=== PATIENT | male | born 1950 | race Caucasian/White ===

== ENCOUNTER 2018-03-11 13:57 | Emergency (ER) | payer MEDICARE, BC ==
[~2018-03-11] VITALS: Ht 182.9 cm; Wt 84.1 kg
[2018-03-11 14:04] VITALS: BP 153/71
[2018-03-11] MEDS ORDERED: HYDROcodone/acetaminophen 10/325mg tab PO ONE (14:10)
[2018-03-11] MEDS ORDERED: ondansetron 4mg rapidly disintigrating tab PO ONE (14:10)
[2018-03-11] MEDS ORDERED: NAPR-56 PO (14:43)
[2018-03-11] MEDS ORDERED: HYDR-569 PO (14:43)
[2018-03-11] MEDS ORDERED: ketorolac trometh inj. 60 MG/2 ML VIAL IM ONE (14:50)
== END 2018-03-11 15:20 | disposition home or self-care (01) ==
LOC: ER 13:58
DX: S20.211A Contusion of right front wall of thorax, initial encounter (principal); Z87.891 Personal history of nicotine dependence; W22.8XXA Striking against or struck by other objects, initial encounter; Y93.89 Activity, other specified; Y92.89 Other specified places as the place of occurrence of the external cause; Y99.8 Other external cause status
CPT/HCPCS: 71046; 93005; 96372; 99284; J1885

== ENCOUNTER 2020-09-20 16:53 | Emergency (ER) | payer MEDICARE, BC ==
[~2020-09-20] VITALS: Ht 185.4 cm; Wt 89.5 kg
[~2020-09-20 16:53] MED LIST: HYDR-4383 PO
[2020-09-20] MEDS ORDERED: normal saline 1000ml 1,000 ML IV ONE ×2 (17:40→18:20)
[2020-09-20 17:46] LABS: BASOPHILS # (AUTO) 0.1 X10'3 (0-0.2); BASOPHILS % (AUTO) 0.7 % (0-1); EOSINOPHILS # (AUTO) 0.2 X10'3 (0-0.9); EOSINOPHILS % (AUTO) 2.5 % (0-6); HEMATOCRIT 41.9 % (42.0-52.0); HEMOGLOBIN 13.9 g/dl (14.0-17.9); LYMPHOCYTES # (AUTO) 1.6 X10'3 (1.1-4.8); LYMPHOCYTES % (AUTO) 22.8 % (21-51); MEAN CORPUSCULAR HEMOGLOBIN 30.3 PG (27.0-31.0); MEAN CORPUSCULAR HGB CONC 33.2 g/dL (33.0-36.5); MEAN CORPUSCULAR VOLUME 91.2 FL (78-98); MEAN PLATELET VOLUME 7.5 FL (7.4-10.4); MONOCYTES # (AUTO) 0.4 X10'3 (0-0.9); MONOCYTES % (AUTO) 5.4 % (2-12); NEUTROPHILS # (AUTO) 4.7 X10'3 (1.8-7.7); NEUTROPHILS % (AUTO) 68.6 % (42-75); PLATELET COUNT 211 X10'3 (140-440); RED BLOOD COUNT 4.59 X10'6 (4.70-6.10); RED CELL DISTRIBUTION WIDTH 15.2 % (11.5-14.5); WHITE BLOOD COUNT 6.9 X10'3 (4.5-11.0)
[2020-09-20 18:07] LABS: ALANINE AMINOTRANSFERASE 42 U/L (12-78); ALBUMIN 3.7 G/DL (3.4-5.0); ALKALINE PHOSPHATASE 101 IU/L (46-116); ANION GAP 12 (8-16); ASPARTATE AMINO TRANSFERASE 22 U/L (10-37); BILIRUBIN,TOTAL 0.5 MG/DL (0.1-1.0); BLOOD UREA NITROGEN 33 MG/DL (7-18); BUN/CREATININE RATIO 17.9 (5.4-32.0); CALCIUM 9.4 MG/DL (8.5-10.1); CHLORIDE 94 MMOL/L (99-107); CREATININE 1.84 MG/DL (0.60-1.10); POTASSIUM 5.1 MMOL/L (3.5-5.1); SODIUM 129 MMOL/L (135-145); TOTAL CARBON DIOXIDE 23.5 MMOL/L (24-32); TOTAL PROTEIN 7.5 G/DL (6.4-8.2); eGFR 37 ML/MIN
[2020-09-20 18:11] LABS: GLUCOSE 650 MG/DL (70-104)
[2020-09-20] MEDS ORDERED: insulin regular, human 10 units/0.1 ml syringe IV ONE (18:20)
[2020-09-20 18:28] LABS: CLARITY,URINE CLEAR (Clear); COLOR,URINE YELLOW (Yellow); GLUCOSE, URINE >=1000 mg/dl (Neg); KETONES,URINE NEGATIVE (Neg); LEUKOCYTE ESTERASE ,URINE NEGATIVE (Neg); NITRITES, URINE NEGATIVE (Neg); OCCULT BLOOD,URINE TRACE-INTACT (Neg); PROTEIN,URINE NEGATIVE (Neg); UROBILINOGEN,URINE 0.2 E.U/dL (0.2-1.0)
[2020-09-20 18:28] LABS: MAGNESIUM 2.2 MG/DL (1.5-2.4); TROPONIN I < 0.04 NG/ML (0.0-0.05)
[2020-09-20 18:29] LABS: UA COLLECTION TYPE CLN CATCH MIDSTREAM
[2020-09-20 18:53] LABS: BACTERIA,URINE FEW /HPF (Neg); RBC,URINE 0-2 /HPF (0-2); WBC,URINE 0-4 /HPF (0-4)
[2020-09-20 18:54] LABS: SQUAMOUS EPITHELIAL CELL,UR FEW /LPF (FEW)
[2020-09-20] MEDS ORDERED: insulin regular, human U-100 3ml vial - multi-dose IV ONE (18:55)
[2020-09-20] MEDS ORDERED: potassium Cl 40MEQ/1/2NS 520ml 520 ML IV PRN ×2 (20:15)
[2020-09-20] MEDS ORDERED: mag hydrox/Alum hydrox/simeth 30ml oral suspension PO PRN (20:15)
[2020-09-20] MEDS ORDERED: potassium Cl 20 mEq SR tablet PO PRN ×2 (20:15)
[2020-09-20] MEDS ORDERED: magnesium hydroxide 30ml (MOM) UD suspension PO PRN (20:15)
[2020-09-20] MEDS ORDERED: acetaminophen 325mg tablet PO PRN (20:15)
[2020-09-20] MEDS ORDERED: ondansetron/PF 4mg/2ml inj IV PRN (20:15)
[2020-09-20] MEDS ORDERED: dextrose ORAL solution 15 GM/59 ML bottle PO PRN ×2 (20:20)
[2020-09-20] MEDS ORDERED: MESSAGE TO PHARMACY PO ONE (20:20)
[2020-09-20] MEDS ORDERED: glucagon, human recombinant 1mg kit SUBCUT PRN (20:20)
[2020-09-20] MEDS ORDERED: dextrose 50%-water 50ml dispensing syringe IV PRN ×2 (20:20)
[2020-09-20] MEDS ORDERED: insulin Lispro (HumaLOG) vial - multi-dose SQ SCH (20:20)
[2020-09-20] MEDS ORDERED: NO HOME MEDS (20:25)
[2020-09-20 20:37] LABS: HEMOGLOBIN A1C 10.8 % (4.5-6.2)
[2020-09-20] MEDS: normal saline 1000ml 1,000 ML IV SCH (20:56)
[2020-09-20] MEDS: gabapentin 100mg capsule PO SCH (20:56)
[2020-09-20] MEDS ORDERED: insulin glargine (Lantus) pen - multi-dose SQ SCH (21:00)
[2020-09-21 02:53] LABS: BASOPHILS % (AUTO) 0.4 % (0-1); EOSINOPHILS # (AUTO) 0.3 X10'3 (0-0.9); EOSINOPHILS % (AUTO) 3.9 % (0-6); HEMATOCRIT 37.3 % (42.0-52.0); HEMOGLOBIN 12.4 g/dl (14.0-17.9); LYMPHOCYTES # (AUTO) 2.6 X10'3 (1.1-4.8); LYMPHOCYTES % (AUTO) 36.3 % (21-51); MEAN CORPUSCULAR HEMOGLOBIN 29.7 PG (27.0-31.0); MEAN CORPUSCULAR HGB CONC 33.1 g/dL (33.0-36.5); MEAN CORPUSCULAR VOLUME 89.7 FL (78-98); MEAN PLATELET VOLUME 7.2 FL (7.4-10.4); MONOCYTES # (AUTO) 0.4 X10'3 (0-0.9); MONOCYTES % (AUTO) 5.7 % (2-12); NEUTROPHILS # (AUTO) 3.8 X10'3 (1.8-7.7); NEUTROPHILS % (AUTO) 53.7 % (42-75); PLATELET COUNT 184 X10'3 (140-440); RED BLOOD COUNT 4.16 X10'6 (4.70-6.10); RED CELL DISTRIBUTION WIDTH 14.8 % (11.5-14.5)
[2020-09-21 03:05] LABS: ALANINE AMINOTRANSFERASE 35 U/L (12-78); ALBUMIN 3.2 G/DL (3.4-5.0); ALKALINE PHOSPHATASE 79 IU/L (46-116); ANION GAP 10 (8-16); ASPARTATE AMINO TRANSFERASE 20 U/L (10-37); BILIRUBIN,TOTAL 0.4 MG/DL (0.1-1.0); BLOOD UREA NITROGEN 27 MG/DL (7-18); BUN/CREATININE RATIO 23.1 (5.4-32.0); CALCIUM 8.5 MG/DL (8.5-10.1); CHLORIDE 101 MMOL/L (99-107); CREATININE 1.17 MG/DL (0.60-1.10); GLUCOSE 207 MG/DL (70-104); POTASSIUM 3.8 MMOL/L (3.5-5.1); SODIUM 136 MMOL/L (135-145); TOTAL CARBON DIOXIDE 24.6 MMOL/L (24-32); TOTAL PROTEIN 6.3 G/DL (6.4-8.2); eGFR 62 ML/MIN
--- NOTE | 2020-09-21 05:58 | NUR ---
Pt requested a new diaper due to urine incontinence.
[2020-09-21] MEDS ORDERED: K and/or MAG REPLACEMENT MC SCH ×2 (08:00→20:00)
[2020-09-21] MEDS ORDERED: heparin, porcine 5000 units/ml vial SQ SCH (08:00)
--- NOTE | 2020-09-21 08:35 | NUR ---
accu checks done and breakfast tray given to pt.
[2020-09-21] MEDS: normal saline 1000ml 1,000 ML IV SCH (08:40)
[2020-09-21] MEDS: gabapentin 100mg capsule PO SCH (08:40)
--- NOTE | 2020-09-21 08:45 | NUR ---
PT'S ARRIVES AT BEDSIDE. BROUGHT BATTERIES FOR HEARING AIDS.
--- NOTE | 2020-09-21 09:41 | NUR ---
PT GIVEN 6 UNITS HUMALOG INSULIN PER PROTOCOL
[2020-09-21] MEDS ORDERED: magnesium Cl slow-release 64mg tablet PO PRN (10:05)
[2020-09-21] MEDS ORDERED: magnesium 4gm in 100ml NS 100 ML IV PRN (10:05)
[2020-09-21] MEDS ORDERED: AMA1T PO (12:30)
[2020-09-21] MEDS ORDERED: ASPI-611 PO (12:30)
[2020-09-21] MEDS ORDERED: METF-950 PO (12:30)
[2020-09-21] MEDS ORDERED: LISI10TA27 PO (12:30)
[2020-09-21] MEDS ORDERED: SAXA5TAB PO (12:30)
[2020-09-21 13:56] VITALS: BP 113/74
== END 2020-09-21 13:56 | disposition home or self-care (01) ==
LOC: ER 16:55 → UNDOADMIN 20:14 → ED HOLD 20:14 → UNDODISIN 09-21 13:56
DX: E11.65 Type 2 diabetes mellitus with hyperglycemia (principal); R32 Unspecified urinary incontinence; G62.9 Polyneuropathy, unspecified; E86.0 Dehydration; Z79.82 Long term (current) use of aspirin; Z79.899 Other long term (current) drug therapy
CPT/HCPCS: 36415; 71045; 80053; 81001; 82948; 83036; 83735; 84484; 85025; 87081; 96361; 96372; 96374; 99285; J1644; J1815; J7030; G0378

== ENCOUNTER 2024-07-02 15:01 | Inpatient (IN) | payer MEDICARE ==
[~2024-07-02] VITALS: Ht 182.9 cm; Wt 87.5 kg
[~2024-07-02 15:01] MED LIST changes: -HYDR-4383 PO; +LISI10TA27 PO; +SAXA5TAB PO
[2024-07-02 15:58] LABS: BASOPHILS # (AUTO) 0.1 X10'3 (0-0.2); BASOPHILS % (AUTO) 0.8 % (0-1); EOSINOPHILS # (AUTO) 0.9 X10'3 (0-0.9); EOSINOPHILS % (AUTO) 10.8 % (0-6); HEMATOCRIT 43.5 % (42.0-52.0); HEMOGLOBIN 14.4 g/dl (14.0-17.9); LYMPHOCYTES # (AUTO) 2.3 X10'3 (1.1-4.8); LYMPHOCYTES % (AUTO) 26.7 % (21-51); MEAN CORPUSCULAR HEMOGLOBIN 29.3 PG (27.0-31.0); MEAN CORPUSCULAR VOLUME 88.8 FL (78-98); MEAN PLATELET VOLUME 7.5 FL (7.4-10.4); MONOCYTES # (AUTO) 0.5 X10'3 (0-0.9); MONOCYTES % (AUTO) 5.6 % (2-12); NEUTROPHILS # (AUTO) 4.9 X10'3 (1.8-7.7); NEUTROPHILS % (AUTO) 56.1 % (42-75); PLATELET COUNT 234 X10'3 (140-440); RED CELL DISTRIBUTION WIDTH 15.4 % (11.5-14.5); WHITE BLOOD COUNT 8.7 X10'3 (4.5-11.0)
[2024-07-02 16:11] LABS: ALBUMIN 4.3 G/DL (3.4-5.0); ANION GAP 9 (8-16); BLOOD UREA NITROGEN 36 MG/DL (7-18); BUN/CREATININE RATIO 25.5 (10.0-20.0); CALCIUM 9.8 MG/DL (8.5-10.1); CHLORIDE 105 MMOL/L (99-107); CREATININE 1.41 MG/DL (0.60-1.10); GLUCOSE 120 MG/DL (70-104); SODIUM 139 MMOL/L (135-145); TOTAL CARBON DIOXIDE 25.3 MMOL/L (24-32); eCRCL 51 ML/MIN; eGFR 49 ML/MIN
[2024-07-02 16:22] LABS: APTT 27 SECONDS (22-32); PROTHROMBIN TIME 10.7 SECONDS (9.0-12.0)
[2024-07-02] MEDS: clopidogrel 300mg tablet PO ONE (21:31)
[2024-07-02] MEDS ORDERED: hydrALAZINE 20mg/ml inj. IV PRN (23:20)
[2024-07-02] MEDS ORDERED: acetaminophen 325mg tablet PO PRN (23:20)
[2024-07-02] MEDS ORDERED: magnesium hydroxide 30ml (MOM) UD suspension PO PRN (23:20)
[2024-07-02] MEDS ORDERED: bisacodyl 10mg suppository rectal RC PRN (23:20)
[2024-07-02] MEDS: PERFLUTREN PROTEIN-A MICROSPHR (Optison) 0.22 MG/ML 3ML VIAL IV ONE (23:52)
[2024-07-03 00:11] LABS: HEMOGLOBIN A1C 7.5 % (4.5-6.2)
[2024-07-03] MEDS ORDERED: UNABLE TO OBTAIN (00:15)
[2024-07-03] MEDS ORDERED: METF-1203 PO (00:24)
[2024-07-03] MEDS ORDERED: GABA-1405 PO (00:25)
[2024-07-03] MEDS ORDERED: GLIM2TAB6 PO (00:26)
[2024-07-03] MEDS ORDERED: ROSU10TA72 PO (00:27)
[2024-07-03 00:30] VITALS: BP 129/78; PULSE 77; RESP 14; TEMP 97.9; O2SAT 97
[2024-07-03] MEDS ORDERED: glucagon, human recombinant 1mg kit SUBCUT PRN (00:35)
[2024-07-03] MEDS ORDERED: dextrose 50%-water 50ml dispensing syringe IV PRN ×2 (00:35)
[2024-07-03] MEDS ORDERED: DEXTROSE 15 GM of carb/4 tabs (each vial/BOTTLE has 4 tablets) PO PRN ×2 (00:35)
[2024-07-03] MEDS: acetaminophen 325mg tablet PO PRN (00:48)
[2024-07-03] MEDS: normal saline 1000ml 1,000 ML IV SCH (02:08)
[2024-07-03 06:00] VITALS: BP 124/73; PULSE 75; RESP 16; TEMP 97.2; O2SAT 92
[2024-07-03 06:41] LABS: BASOPHILS # (AUTO) 0.1 X10'3 (0-0.2); BASOPHILS % (AUTO) 0.7 % (0-1); EOSINOPHILS # (AUTO) 1.1 X10'3 (0-0.9); EOSINOPHILS % (AUTO) 11.2 % (0-6); HEMATOCRIT 40.9 % (42.0-52.0); HEMOGLOBIN 13.7 g/dl (14.0-17.9); LYMPHOCYTES # (AUTO) 2.7 X10'3 (1.1-4.8); LYMPHOCYTES % (AUTO) 28.4 % (21-51); MEAN CORPUSCULAR HEMOGLOBIN 29.7 PG (27.0-31.0); MEAN CORPUSCULAR HGB CONC 33.5 g/dL (33.0-36.5); MEAN CORPUSCULAR VOLUME 88.5 FL (78-98); MEAN PLATELET VOLUME 7.4 FL (7.4-10.4); MONOCYTES # (AUTO) 0.7 X10'3 (0-0.9); NEUTROPHILS % (AUTO) 52.7 % (42-75); PLATELET COUNT 200 X10'3 (140-440); RED BLOOD COUNT 4.62 X10'6 (4.70-6.10); RED CELL DISTRIBUTION WIDTH 15.4 % (11.5-14.5); WHITE BLOOD COUNT 9.5 X10'3 (4.5-11.0)
[2024-07-03] MEDS: INSULIN LISPRO 100 UNIT/ML INSULN.PEN MULTI-DOSE SQ SCH (07:00)
[2024-07-03 07:30] LABS: ALANINE AMINOTRANSFERASE 23 U/L (12-78); ALBUMIN 3.9 G/DL (3.4-5.0); ALBUMIN/GLOBULIN RATIO 1.1 (1.1-1.5); ALKALINE PHOSPHATASE 66 IU/L (46-116); ANION GAP 12 (8-16); ASPARTATE AMINO TRANSFERASE 20 U/L (10-37); BILIRUBIN,TOTAL 0.5 MG/DL (0.1-1.0); BLOOD UREA NITROGEN 29 MG/DL (7-18); BUN/CREATININE RATIO 22.7 (10.0-20.0); CALCIUM 9.3 MG/DL (8.5-10.1); CHLORIDE 107 MMOL/L (99-107); CHOL/HDL RATIO 2.8 (0.00-4.99); CHOLESTEROL 108 MG/DL (0-200); CREATININE 1.28 MG/DL (0.60-1.10); GLUCOSE 101 MG/DL (70-104); HDL CHOLESTEROL 39 MG/DL (35-60); LDL CHOLESTEROL 42 MG/DL (50-100); POTASSIUM 4.1 MMOL/L (3.5-5.1); SODIUM 139 MMOL/L (135-145); THYROID STIMULATING HORMONE 2.95 ulU/ml (0.34-4.50); TOTAL CARBON DIOXIDE 19.8 MMOL/L (24-32); TOTAL PROTEIN 7.4 G/DL (6.4-8.2); TRIGLYCERIDES 252 MG/DL (20-135); eCRCL 56 ML/MIN; eGFR 55 ML/MIN
[2024-07-03] MEDS: docusate sod 100mg capsule PO SCH (08:00)
[2024-07-03] MEDS: pantoprazole 40mg Tablet.DR PO SCH (09:39)
[2024-07-03] MEDS: aspirin 81mg, enteric-coated 1 TAB TABLET.DR PO SCH (09:40)
[2024-07-03] MEDS: clopidogrel 75mg tablet PO SCH (09:41)
[2024-07-03] MEDS: atorvastatin 10mg tablet PO SCH (09:42)
[2024-07-03] MEDS: heparin, porcine 5000 units/ml vial SQ SCH (09:43)
[2024-07-03 10:00] VITALS: BP 148/78; PULSE 80; RESP 17; TEMP 97.8; O2SAT 98
[2024-07-03] MEDS ORDERED: iohexol 350MG/ML 100ml bottle IV ONE (11:21)
[2024-07-03] MEDS: ondansetron/PF 4mg/2ml inj IV PRN (12:52)
[2024-07-03] MEDS: gabapentin 300mg capsule PO SCH (12:53)
[2024-07-03 15:00] VITALS: BP 112/58; PULSE 82; RESP 16; TEMP 97.8; O2SAT 97
[2024-07-03] MEDS ORDERED: ondansetron 4mg rapidly disintigrating tab PO PRN (15:55)
[2024-07-03] MEDS ORDERED: HYDROcodone/acetaminophen 10/325mg tab PO PRN (15:55)
[2024-07-03] MEDS ORDERED: ondansetron/PF 4mg/2ml inj IV PRN (15:55)
[2024-07-03] MEDS ORDERED: acetaminophen 325mg tablet PO PRN ×2 (15:55)
[2024-07-03] MEDS ORDERED: morphine 2 MG/ML inj. syringe IV PRN ×2 (15:55)
[2024-07-03] MEDS: HYDROcodone/acetaminophen 5mg/325mg tablet PO PRN (17:29)
[2024-07-03 18:00] VITALS: BP 143/81; PULSE 81; RESP 18; TEMP 98.1; O2SAT 97
[2024-07-03] MEDS ORDERED: gabapentin 300mg capsule PO SCH (20:00)
[2024-07-03] MEDS: insulin glargine (Lantus) pen - multi-dose SQ SCH (21:18)
[2024-07-03 22:00] VITALS: BP 140/77; PULSE 77; RESP 16; TEMP 98; O2SAT 96
[2024-07-04 03:38] VITALS: BP 113/67; PULSE 74; RESP 16; TEMP 98.7; O2SAT 97
[2024-07-04 06:00] VITALS: BP 107/53; PULSE 77; RESP 16; TEMP 98.1; O2SAT 91
[2024-07-04] MEDS ORDERED: CLOP75TA34 PO (07:30)
[2024-07-04] MEDS ORDERED: ASPI-1071 PO (07:30)
[2024-07-04 07:51] LABS: BASOPHILS # (AUTO) 0.1 X10'3 (0-0.2); BASOPHILS % (AUTO) 0.6 % (0-1); EOSINOPHILS # (AUTO) 0.8 X10'3 (0-0.9); HEMOGLOBIN 12.4 g/dl (14.0-17.9); LYMPHOCYTES # (AUTO) 2.1 X10'3 (1.1-4.8); LYMPHOCYTES % (AUTO) 25.8 % (21-51); MEAN CORPUSCULAR HEMOGLOBIN 29.4 PG (27.0-31.0); MEAN CORPUSCULAR HGB CONC 33.4 g/dL (33.0-36.5); MEAN PLATELET VOLUME 7.6 FL (7.4-10.4); MONOCYTES # (AUTO) 0.6 X10'3 (0-0.9); MONOCYTES % (AUTO) 7.9 % (2-12); NEUTROPHILS # (AUTO) 4.5 X10'3 (1.8-7.7); NEUTROPHILS % (AUTO) 55.7 % (42-75); PLATELET COUNT 185 X10'3 (140-440); RED CELL DISTRIBUTION WIDTH 15.3 % (11.5-14.5); WHITE BLOOD COUNT 8.2 X10'3 (4.5-11.0)
[2024-07-04 08:23] LABS: ALANINE AMINOTRANSFERASE 20 U/L (12-78); ALBUMIN 3.4 G/DL (3.4-5.0); ALBUMIN/GLOBULIN RATIO 1.1 (1.1-1.5); ALKALINE PHOSPHATASE 53 IU/L (46-116); ANION GAP 9 (8-16); ASPARTATE AMINO TRANSFERASE 18 U/L (10-37); BILIRUBIN,TOTAL 0.5 MG/DL (0.1-1.0); BLOOD UREA NITROGEN 27 MG/DL (7-18); BUN/CREATININE RATIO 19.3 (10.0-20.0); CHLORIDE 107 MMOL/L (99-107); GLUCOSE 151 MG/DL (70-104); POTASSIUM 4.2 MMOL/L (3.5-5.1); SODIUM 140 MMOL/L (135-145); TOTAL CARBON DIOXIDE 23.8 MMOL/L (24-32); TOTAL PROTEIN 6.6 G/DL (6.4-8.2); eCRCL 52 ML/MIN; eGFR 50 ML/MIN
[2024-07-04 08:45] VITALS: RESP 16; O2SAT 91
[2024-07-04 10:00] VITALS: BP 127/70; PULSE 74; TEMP 98.7; O2SAT 97
[2024-07-04] MEDS ORDERED: ATOR-2 PO (18:00)
[2024-07-04] MEDS ORDERED: ROSU10TA72 PO (18:01)
== END 2024-07-04 11:45 | disposition home health service (06) | DRG 65 ==
LOC: ER 15:02 → ED HOLD 20:41 → ORTHO 4S 07-03 00:35
PROVIDERS: ADMIT Surgery Surgical Critical Care; ATTEND Nurse Practitioner Family
PROC: B3251ZZ Computerized Tomography (CT Scan) of Bilateral Common Carotid Arteries using Low Osmolar Contrast (ICD-10-PCS; principal; 2024-07-03)
PROC: B32G1ZZ Computerized Tomography (CT Scan) of Bilateral Vertebral Arteries using Low Osmolar Contrast (ICD-10-PCS; 2024-07-03)
PROC: B32R1ZZ Computerized Tomography (CT Scan) of Intracranial Arteries using Low Osmolar Contrast (ICD-10-PCS; 2024-07-03)
PROC: B3281ZZ Computerized Tomography (CT Scan) of Bilateral Internal Carotid Arteries using Low Osmolar Contrast (ICD-10-PCS; 2024-07-03)
DX: I63.9 Cerebral infarction, unspecified (principal); N17.9 Acute kidney failure, unspecified; I65.23 Occlusion and stenosis of bilateral carotid arteries; I12.9 Hypertensive chronic kidney disease with stage 1 through stage 4 chronic kidney disease, or unspecified chronic kidney disease; N18.9 Chronic kidney disease, unspecified; D32.0 Benign neoplasm of cerebral meninges; E11.22 Type 2 diabetes mellitus with diabetic chronic kidney disease; E78.5 Hyperlipidemia, unspecified; G43.909 Migraine, unspecified, not intractable, without status migrainosus; Z79.84 Long term (current) use of oral hypoglycemic drugs; Z79.899 Other long term (current) drug therapy; Z85.46 Personal history of malignant neoplasm of prostate; Z87.891 Personal history of nicotine dependence
CPT/HCPCS: 36415; 70450; 70496; 70498; 70551; 71045; 80048; 80053; 80061; 82948; 83036; 84443; 85025; 85610; 85730; 87081; 92508; 92616; 93005; 93306; 97116; 97161; 97530; 99285; G0378; J1644; J1815; J2405; J7030; Q9967

== ENCOUNTER 2025-01-28 12:20 | Outpatient (CLI) | payer MEDICARE ==
[~2025-01-28 12:20] MED LIST changes: +ASPI-1071 PO; +CLOP75TA34 PO; +GABA-1405 PO; +GLIM2TAB6 PO; -LISI10TA27 PO; +METF-1203 PO; +ROSU10TA72 PO; -SAXA5TAB PO
--- NOTE | 2025-01-28 15:38 | RADIOLOGY REPORT ---
PROCEDURE: MR MRI HEAD INDICATION: BENIGN NEOPLASM OF MENINGES, UNSPECIFIED EXAM DATE: 01/28/2025 12:59 PM COMPARISON: CT CTA NECK/HEAD on DOS: 07/03/24, MR MRI HEAD on DOS: 07/03/24, CT CT STROKE ALERT on DOS: TECHNIQUE: MRI of the brain without intravenous contrast. FINDINGS: Diffusion weighted images of the brain demonstrate no evidence of acute infarction. There is no evidence of acute intracranial hemorrhage, extra-axial collection, mass effect, midline s hift, herniation or hydrocephalus. The ventricles, sulci and cisterns appear age appropriate. Moderate changes of chronic microvascular ischemic disease. Stable likely meningioma along the right falx measuring up to 19 mm. There are no signal abnormalities on the susceptibility weighted sequences. The major vascular flow voids are present. Left maxillary sinusitis. The surrounding soft tissues and osseous structures are unremarkable. IMPRESSION: 1. No evidence of acute infarction, intracranial hemorrhage, mass effect or hydrocephalus. Moderate c hanges of chronic microvascular ischemic disease. Stable likely meningioma along the right falx. Lef t maxillary sinusitis. HS:Y
== END 2025-01-28 23:59 | disposition home or self-care (01) ==
LOC: MRI 12:20
PROVIDERS: ATTEND Nurse Practitioner Family
DX: D32.9 Benign neoplasm of meninges, unspecified (principal); I67.82 Cerebral ischemia; J32.0 Chronic maxillary sinusitis; G45.9 Transient cerebral ischemic attack, unspecified
CPT/HCPCS: 70551